=== PATIENT | male | born 1975 ===

== ENCOUNTER → 2024-04-20 12:39 | Outpatient (REF) | payer BC, SELFPAY | LOC: RCS 12:39 | PROVIDERS: ATTENDING PHYSICIAN Nuclear Medicine Nuclear Cardiology; FAMILY PHYSICIAN Family Medicine | DX: I10 Essential (primary) hypertension (principal); I51.7 Cardiomegaly; E78.2 Mixed hyperlipidemia; Z82.49 Family history of ischemic heart disease and other diseases of the circulatory system | CPT/HCPCS: 93307; Q9957 ==